=== PATIENT | female | born 1940 | race Caucasian/White ===

== ENCOUNTER 2017-10-07 16:09 | Inpatient (IN) | payer MEDICARE, MEDICAID ==
[~2017-10-07] VITALS: Ht 157.5 cm; Wt 52.5 kg
[2017-10-07 16:47] LABS: GLUCOSE,POINT OF CARE 126 MG/DL (70-110)
[2017-10-07] MEDS ORDERED: MEMA10TA11 PO (16:51)
[2017-10-07] MEDS ORDERED: ISOS30TA6 PO (16:51)
[2017-10-07] MEDS ORDERED: ASPI81 PO (16:51)
[2017-10-07] MEDS ORDERED: AMLO-512 PO (16:51)
[2017-10-07] MEDS ORDERED: FERR-89 PO (16:51)
[2017-10-07] MEDS ORDERED: PHOSLOC PO (16:51)
[2017-10-07] MEDS ORDERED: SERT100T12 PO ×2 (16:51→20:03)
[2017-10-07] MEDS ORDERED: PRAV20TA4 PO ×2 (16:51→20:03)
[2017-10-07] MEDS ORDERED: LEVO125 PO ×2 (16:51→20:03)
[2017-10-07] MEDS ORDERED: CARV25 PO (16:51)
[2017-10-07] MEDS ORDERED: GABA-531 PO ×2 (16:51→20:03)
[2017-10-07] MEDS ORDERED: PRED5 PO (16:51)
[2017-10-07] MEDS ORDERED: FOLI1 PO (16:51)
[2017-10-07] MEDS ORDERED: OMEP20 PO (16:51)
[2017-10-07] MEDS ORDERED: QUET25TA PO (16:51)
[2017-10-07] MEDS ORDERED: BUME1TAB17 PO (16:51)
[2017-10-07] MEDS ORDERED: TACR1 PO (16:51)
[2017-10-07 18:17] LABS: CALCIUM, TOTAL 8.6 mg/dL (8.8-10.5); CREATININE 5.58 mg/dL (0.60-1.30); POTASSIUM 4.2 mmol/L (3.5-5.1)
[2017-10-07 18:20] LABS: EOSINOPHILS # (AUTO) 0.06 K/uL (0.00-0.70); EOSINOPHILS % (AUTO) 1.02 % (1.0-6.0); HEMOGLOBIN 10.3 g/dL (12.0-16.0); LYMPHOCYTES # (AUTO) 0.9 K/uL (1.0-4.8); LYMPHOCYTES % (AUTO) 15.5 % (22.0-44.0); MEAN CORPUSCULAR HEMOGLOBIN 30.5 pg (26.0-34.0); MEAN CORPUSCULAR HGB CONC 32.1 G/dL (31.0-37.0); MEAN CORPUSCULAR VOLUME 95 fL (80-100); MONOCYTES # (AUTO) 0.3 K/uL (0.1-1.0); MONOCYTES % (AUTO) 4.8 % (2.0-9.0); NEUTROPHILS # (AUTO) 4.7 K/uL (1.8-7.7); NEUTROPHILS % (AUTO) 78.6 % (40.0-70.0); PLATELET COUNT (AUTO) 166 K/uL (150-450); RED BLOOD CELL COUNT(AUTO) 3.38 MIL/uL (4.00-5.20); RED CELL DISTRIBUTION WIDTH 18.5 % (11.5-14.5); WHITE BLOOD COUNT (AUTO) 5.9 K/uL (4.5-11.0)
[2017-10-07 18:21] LABS: PROTHROMBIN TIME 10.7 SEC (9.4-11.6)
[2017-10-07 18:31] LABS: ALBUMIN 3.4 g/dL (3.4-5.0); BILIRUBIN,TOTAL 0.3 mg/dL (0.1-1.0); TOTAL PROTEIN, SERUM 6.9 g/dL (6.4-8.2)
[2017-10-07 18:41] LABS: RBC MORPHOLOGY COMMENT ABNORMAL RBC MORPH
[2017-10-07 18:51] LABS: APPEARANCE,URINE CLOUDY (CLEAR); GLUCOSE, URINE (UA) NEGATIVE (NEGATIVE); KETONES,URINE NEGATIVE (NEGATIVE); LEUKOCYTE ESTERASE ,URINE LARGE (NEGATIVE); OCCULT BLOOD,URINE SMALL (NEGATIVE); PH,URINE 5.5 (5.0-8.0); PROTEIN,URINE SEE CONFIRM (NEGATIVE)
[2017-10-07 19:01] LABS: ADD UA MICROSCOPIC YES
[2017-10-07 19:02] LABS: SULFOSALICYLIC ACID,URINE 2+ (Negative); WBC,URINE 51-100 /HPF (0-5)
[2017-10-07 19:03] LABS: RENAL EPITHELIAL CELLS,URINE Few /LPF (None Seen); SQUAMOUS EPITHELIAL CELL,UR Moderate /LPF (None Seen)
[2017-10-07] MEDS ORDERED: CefTRIAXone 1 GM/DEXTROSE 50 ML IV ONE (19:30)
[2017-10-07] MEDS ORDERED: EVER0.5T PO ×2 (20:03→21:16)
[2017-10-07 20:25] VITALS: BP 157/56
[2017-10-07] MEDS ORDERED: MULT-1203 PO (21:16)
[2017-10-07] MEDS ORDERED: INSLAN SQ (21:39)
[2017-10-07] MEDS ORDERED: ACETAMINOPHEN 325 MG TABLET PO PRN (21:45)
[2017-10-07] MEDS ORDERED: DEXTROSE 50%-WATER 25 GM/50 ML SYRINGE IVP PRN (21:45)
[2017-10-07] MEDS ORDERED: BISACODYL 10 MG RECTAL RECTAL SUPPOSITORY PR PRN (21:45)
[2017-10-08 01:06] VITALS: BP 124/52
[2017-10-08 01:33] LABS: GLUCOSE,POINT OF CARE 170 MG/DL (70-110)
[2017-10-08 03:54] VITALS: BP 128/55
[2017-10-08 07:46] VITALS: BP 130/55
[2017-10-08] MEDS: DOCUSATE SODIUM 100 MG CAPSULE PO SCH ×2 (09:00→20:33)
[2017-10-08] MEDS: ASPIRIN 81 MG CHEWABLE TABLET PO SCH (09:37)
[2017-10-08] MEDS: HEPARIN SODIUM,PORCINE 5,000 UNITS/ML VIAL SQ SCH ×2 (09:37→20:34)
[2017-10-08] MEDS: TACROLIMUS ANHYDROUS 1 MG CAPSULE PO SCH ×2 (09:37→20:32)
[2017-10-08] MEDS: AmLODIPine BESYLATE 10 MG TABLET PO SCH (09:38)
[2017-10-08] MEDS: PANTOPRAZOLE SODIUM 40 MG DR TABLET PO SCH (09:38)
[2017-10-08 11:25] VITALS: BP 141/55
[2017-10-08] MEDS: PredniSONE 5 MG TABLET PO SCH (11:48)
[2017-10-08 11:58] LABS: GLUCOSE COMMENT 1 Received Meds; GLUCOSE,POINT OF CARE 142 MG/DL (70-110)
[2017-10-08 11:58] LABS: GLUCOSE,POINT OF CARE 112 MG/DL (70-110)
[2017-10-08] MEDS: INSULIN ASPART 100 UNITS/ML SQ PRN ×3 (11:58→20:31)
[2017-10-08] MEDS ORDERED: PredniSONE 5 MG TABLET PO SCH (13:45)
[2017-10-08] MEDS ORDERED: *PATIENT'S OWN MED [ENTER DRUG, DOSE, FREQUENCY IN COMMENTS] CLINICAL ONE ×2 (14:00)
[2017-10-08 15:38] VITALS: BP 127/48
[2017-10-08 17:47] LABS: GLUCOSE COMMENT 1 Received Meds; GLUCOSE,POINT OF CARE 163 MG/DL (70-110)
[2017-10-08] MEDS ORDERED: SODIUM CHLORIDE 0.9% 50 ML ONE (20:28)
[2017-10-08] MEDS: EVEROLIMUS 0.5 MG PO SCH (20:33)
[2017-10-08 20:39] VITALS: BP 133/53
[2017-10-08] MEDS ORDERED: ATORVASTATIN CALCIUM 20 MG TABLET PO SCH (21:00)
[2017-10-08] MEDS ORDERED: CefTRIAXone 1 GM/DEXTROSE 50 ML IV SCH (21:00)
[2017-10-09 00:42] VITALS: BP 128/54
[2017-10-09 04:55] VITALS: BP 141/48
[2017-10-09] MEDS ORDERED: LEVOTHYROXINE SODIUM 125 MCG TABLET PO SCH (06:30)
[2017-10-09 06:43] LABS: CALCIUM, TOTAL 8.1 mg/dL (8.8-10.5); CREATININE 4.04 mg/dL (0.60-1.30); POTASSIUM 3.9 mmol/L (3.5-5.1)
[2017-10-09 06:54] LABS: BASOPHILS % (AUTO) 0.1 % (0.0-2.0); EOSINOPHILS # (AUTO) 0.17 K/uL (0.00-0.70); EOSINOPHILS % (AUTO) 3.33 % (1.0-6.0); HEMATOCRIT 31.7 % (36-46); HEMOGLOBIN 10.2 g/dL (12.0-16.0); LYMPHOCYTES # (AUTO) 1.4 K/uL (1.0-4.8); LYMPHOCYTES % (AUTO) 28.2 % (22.0-44.0); MEAN CORPUSCULAR HEMOGLOBIN 30.1 pg (26.0-34.0); MEAN CORPUSCULAR HGB CONC 32.3 G/dL (31.0-37.0); MEAN CORPUSCULAR VOLUME 93 fL (80-100); MONOCYTES # (AUTO) 0.7 K/uL (0.1-1.0); MONOCYTES % (AUTO) 13.5 % (2.0-9.0); NEUTROPHILS # (AUTO) 2.8 K/uL (1.8-7.7); NEUTROPHILS % (AUTO) 54.8 % (40.0-70.0); PLATELET COUNT (AUTO) 161 K/uL (150-450); RED CELL DISTRIBUTION WIDTH 18.2 % (11.5-14.5); WHITE BLOOD COUNT (AUTO) 5.1 K/uL (4.5-11.0)
[2017-10-09 08:03] VITALS: BP 154/60
[2017-10-09 08:19] LABS: RBC MORPHOLOGY COMMENT ABNORMAL RBC MORPH
[2017-10-09] MEDS: DOCUSATE SODIUM 100 MG CAPSULE PO SCH (09:00)
[2017-10-09] MEDS: ASPIRIN 81 MG CHEWABLE TABLET PO SCH (09:09)
[2017-10-09] MEDS: AmLODIPine BESYLATE 10 MG TABLET PO SCH (09:09)
[2017-10-09] MEDS: EVEROLIMUS 0.5 MG PO SCH (09:09)
[2017-10-09] MEDS: PANTOPRAZOLE SODIUM 40 MG DR TABLET PO SCH (09:09)
[2017-10-09] MEDS: TACROLIMUS ANHYDROUS 1 MG CAPSULE PO SCH (09:10)
[2017-10-09] MEDS: HEPARIN SODIUM,PORCINE 5,000 UNITS/ML VIAL SQ SCH (09:10)
[2017-10-09] MEDS: PredniSONE 5 MG TABLET PO SCH (09:10)
[2017-10-09 11:22] VITALS: BP 136/48
[2017-10-09] MEDS ORDERED: CIPR500S5 PO (11:40)
[2017-10-09 20:12] LABS: GLUCOSE,POINT OF CARE 139 MG/DL (70-110)
[2017-10-09 20:12] LABS: GLUCOSE COMMENT 1 Received Meds; GLUCOSE,POINT OF CARE 234 MG/DL (70-110)
[2017-10-09 20:12] LABS: GLUCOSE,POINT OF CARE 114 MG/DL (70-110)
== END 2017-10-09 14:55 | disposition home or self-care (01) | DRG 69 ==
LOC: EMS 16:11 → 5S 19:47
PROVIDERS: ADMIT Internal Medicine; ATTEND Internal Medicine
PROC: 5A1D70Z Performance of Urinary Filtration, Intermittent, Less than 6 Hours Per Day (ICD-10-PCS; principal; 2017-10-08)
DX: G45.9 Transient cerebral ischemic attack, unspecified (principal); I13.2 Hypertensive heart and chronic kidney disease with heart failure and with stage 5 chronic kidney disease, or end stage renal disease; T86.12 Kidney transplant failure; N18.6 End stage renal disease; E11.22 Type 2 diabetes mellitus with diabetic chronic kidney disease; I25.811 Atherosclerosis of native coronary artery of transplanted heart without angina pectoris; K75.9 Inflammatory liver disease, unspecified; N39.0 Urinary tract infection, site not specified; I50.9 Heart failure, unspecified; E21.3 Hyperparathyroidism, unspecified; E78.5 Hyperlipidemia, unspecified; D63.8 Anemia in other chronic diseases classified elsewhere; E03.9 Hypothyroidism, unspecified; Z79.4 Long term (current) use of insulin; Z79.82 Long term (current) use of aspirin; Z79.899 Other long term (current) drug therapy; Z99.2 Dependence on renal dialysis; Z88.8 Allergy status to other drugs, medicaments and biological substances
CPT/HCPCS: 70450; 82962; 83605; 87040; 87081; 87086; 87340; 90935; 93005; 93306; 93880; 96365; 97162; 97167; 97535; 99291; J0696; J1644; J7050; J7507

== ENCOUNTER 2019-10-17 12:05 | Emergency (ER) | payer MEDICARE, OTHER ==
[~2019-10-17] VITALS: Ht 152.4 cm; Wt 48.0 kg
[~2019-10-17 12:05] MED LIST: ASPI81 PO; BUME2TAB34 PO; CARV12.580 PO; CHOL200078 PO; EVER0.5T PO; FAMO20TA8 PO; FERR325T22 PO; FOLI1TAB15 PO; GABA-531 PO; ISOS30TA6 PO; LEVO125 PO; LOPE2CAP PO; MEMA10TA11 PO; OMEP20 PO; PHOSLOC PO; PRAV20TA4 PO; PRED5 PO; QUET25TA PO; SERT100T12 PO; TACR1 PO
[2019-10-17 12:11] VITALS: BP 125/40
[2019-10-17] MEDS ORDERED: [UNRECOGNIZED DRUG - CODE] IV (12:20)
[2019-10-17 12:28] LABS: GLUCOSE,POINT OF CARE 226 MG/DL (70-110)
== END 2019-10-17 15:02 | disposition home or self-care (01) ==
LOC: EMS 12:14
DX: B49 Unspecified mycosis (principal); E11.22 Type 2 diabetes mellitus with diabetic chronic kidney disease; I12.0 Hypertensive chronic kidney disease with stage 5 chronic kidney disease or end stage renal disease; N18.6 End stage renal disease; E11.65 Type 2 diabetes mellitus with hyperglycemia; E05.90 Thyrotoxicosis, unspecified without thyrotoxic crisis or storm; I25.10 Atherosclerotic heart disease of native coronary artery without angina pectoris; Z99.2 Dependence on renal dialysis; Z79.899 Other long term (current) drug therapy; Z98.890 Other specified postprocedural states; Z91.011 Allergy to milk products; Z88.8 Allergy status to other drugs, medicaments and biological substances

== ENCOUNTER 2019-10-21 19:32 | Emergency (ER) | payer MEDICARE, MEDICAID ==
[~2019-10-21] VITALS: Ht 157.5 cm; Wt 48.0 kg
[~2019-10-21 19:32] MED LIST changes: +[UNRECOGNIZED DRUG - CODE] IV
[2019-10-21 20:00] LABS: GLUCOSE,POINT OF CARE 234 MG/DL (70-110)
[2019-10-21 21:06] LABS: BASOPHILS % (AUTO) 0.4 % (0.0-2.0); EOSINOPHILS % (AUTO) 2.5 % (1.0-6.0); HEMOGLOBIN 9.4 g/dL (12.0-16.0); LYMPHOCYTES # (AUTO) 0.6 K/uL (1.0-4.8); MEAN CORPUSCULAR HEMOGLOBIN 30.1 pg (26.0-34.0); MEAN CORPUSCULAR HGB CONC 33.5 G/dL (31.0-37.0); MEAN CORPUSCULAR VOLUME 90 fL (80-100); MONOCYTES # (AUTO) 0.3 K/uL (0.1-1.0); MONOCYTES % (AUTO) 9.1 % (2.0-9.0); NEUTROPHILS # (AUTO) 2.3 K/uL (1.8-7.7); PLATELET COUNT (AUTO) 286 K/uL (150-450); RED BLOOD CELL COUNT(AUTO) 3.11 MIL/uL (4.00-5.20); RED CELL DISTRIBUTION WIDTH 16.2 % (11.5-14.5)
[2019-10-21 21:32] LABS: CALCIUM, TOTAL 7.8 mg/dL (8.8-10.5); CREATININE 3.45 mg/dL (0.60-1.30); POTASSIUM 3.1 mmol/L (3.5-5.1)
[2019-10-21 21:37] LABS: BILIRUBIN,TOTAL 0.5 mg/dL (0.1-1.0); TOTAL PROTEIN, SERUM 8.2 g/dL (6.4-8.2)
[2019-10-21] MEDS: POTASSIUM CHLORIDE 20 MEQ ER TABLET PO ONE (22:39)
[2019-10-21 23:00] VITALS: BP 102/59
[2019-10-21] MEDS: CIPROFLOXACIN HCL 250 MG TABLET PO ONE (23:05)
== END 2019-10-21 23:30 | disposition home or self-care (01) ==
LOC: EMS 19:32
DX: N39.0 Urinary tract infection, site not specified (principal); I12.0 Hypertensive chronic kidney disease with stage 5 chronic kidney disease or end stage renal disease; E11.22 Type 2 diabetes mellitus with diabetic chronic kidney disease; N18.6 End stage renal disease; I25.10 Atherosclerotic heart disease of native coronary artery without angina pectoris; Z99.2 Dependence on renal dialysis; Z79.82 Long term (current) use of aspirin; Z88.5 Allergy status to narcotic agent; Z91.011 Allergy to milk products
CPT/HCPCS: 51701; 51702